=== PATIENT | female | born 1965 | race Two or more races ===

== ENCOUNTER 2018-04-21 00:19 | Emergency (ER) | payer MEDICAID ==
[~2018-04-21] VITALS: Ht 152.4 cm; Wt 48.0 kg
[2018-04-21 03:00] VITALS: BP 141/83
== END 2018-04-21 04:00 | disposition left against medical advice (07) ==
LOC: ER 00:19
DX: Z53.21 Procedure and treatment not carried out due to patient leaving prior to being seen by health care provider (principal)

== ENCOUNTER 2018-05-24 15:14 | Emergency (ER) | payer MEDICAID ==
[~2018-05-24] VITALS: Ht 152.4 cm; Wt 46.3 kg
[2018-05-24] MEDS ORDERED: LIDOCAINE HCL/PF 1% 10 MG/ML 30ML VIAL INFIL ONE (17:15)
[2018-05-24] MEDS ORDERED: CEFTRIAXONE SODIUM 250 MG/VIAL IM ONE (18:15)
[2018-05-24] MEDS ORDERED: LIDOCAINE HCL/PF 1% 2ML VIAL INFIL ONE (18:15)
[2018-05-24] MEDS ORDERED: AZITHROMYCIN 500 MG TABLET PO ONE (18:15)
[2018-05-24] MEDS ORDERED: LIDOCAINE HCL/PF 1% 10 MG/ML 5ML VIAL IJ SCH (19:00)
[2018-05-24] MEDS ORDERED: IBUPROFEN 600MG TABLET PO ONE (19:00)
[2018-05-24 20:49] VITALS: BP 142/87
[2018-05-27 04:12] LABS: CHLAMYDIA TRACHOMATIS NAA Negative (Negative); NEISSERIA GONORRHOEAE NAA Negative (Negative)
== END 2018-05-24 20:51 | disposition home or self-care (01) ==
LOC: ER 16:15
DX: L02.413 Cutaneous abscess of right upper limb (principal); A64 Unspecified sexually transmitted disease; F15.10 Other stimulant abuse, uncomplicated; Z98.890 Other specified postprocedural states; Z88.2 Allergy status to sulfonamides
CPT/HCPCS: 10060; 81025; 87210; 87491; 87591; 96372; 99283; J0696; J3490